=== PATIENT | female | born 1995 | race Hispanic/Latino ===

== ENCOUNTER 2017-12-17 15:08 | Emergency (ER) | payer MEDICAID | END 2017-12-17 16:57 | disposition home or self-care (01) | LOC: EDH 15:08 | DX: L01.00 Impetigo, unspecified (principal) | CPT/HCPCS: 87210 ==

== ENCOUNTER 2019-01-18 13:53 | Emergency (ER) | payer MEDICAID, OTHER | END 2019-01-18 15:51 | disposition home or self-care (01) | LOC: EDH 13:53 | DX: G89.29 Other chronic pain (principal); R10.11 Right upper quadrant pain | CPT/HCPCS: 99281 ==